=== PATIENT | male | born 2000 | race Caucasian/White ===

== ENCOUNTER 2022-02-04 22:00 | Emergency (ER) | payer OTHER ==
[~2022-02-04] VITALS: Ht 180.3 cm; Wt 70.3 kg
[2022-02-04 22:13] VITALS: BP 125/77
--- NOTE | 2022-02-04 22:27 | NUR ---
Dr. Bradford examining patient.
--- NOTE | 2022-02-04 22:40 | NUR ---
C/O testicular pain x today. Patient reported, had testicular pain and swelling ~ one hour ETA. PMHx: Asthma, Ezcema
--- NOTE | 2022-02-04 23:24 | NUR ---
Patient refused US, Dr. Bradford notified.
[2022-02-04 23:34] VITALS: BP 125/77
--- NOTE | 2022-02-04 23:34 | NUR ---
Patient discharged with v/s stable. Written and verbal after care instructions given and explained. Patient verbalized understanding. Ambulatory with steady gait. All questions addressed prior to discharge. Advised to follow up with PMD.
== END 2022-02-04 23:34 | disposition home or self-care (01) ==
LOC: MED 22:00
DX: N50.811 Right testicular pain (principal); J45.909 Unspecified asthma, uncomplicated; Z88.1 Allergy status to other antibiotic agents
CPT/HCPCS: 99281